=== PATIENT | female | born 1975 | race Caucasian/White ===

== ENCOUNTER 2020-09-11 13:34 | Emergency (ER) | payer OTHER ==
[2020-09-11 13:43] VITALS: TEMP 97
[2020-09-11] MEDS ORDERED: SODIUM CHLORIDE 0.9% 500 ML 500 ML IV STA (14:09)
--- NOTE | 2020-09-11 14:14 | ED ---
General Adult HPI - General Chief complaint: Neuro Symptoms/Deficit Stated complaint: facial/rt arm numbness Time Seen by Provider: 09/11/20 14:00 Source: patient, family, RN notes reviewed, old records reviewed Mode of arrival: wheelchair Limitations: no limitations - History of Present Illness Initial comments: This is a 45-year-old female presents emergency Department with 1 hour worth of symptoms. Patient states she started having tingling to her right hand and tingling around her mouth (reason she came to the emergency department. Patient states she had no weakness she denies any slurred speech. Patient denies any blurred vision patient denies any headache. Patient denies chest pain palpitations difficulty breathing shortness of breath. Patient denies abdominal pain patient denies nausea vomiting diarrhea. Patient denies any recent fever chills or cough. Patient denies any seizure-like activity. Patient states she does have a history of seizures and is on Trileptal and Neurontin. Patient denies any recent illness or sickness. - Related Data Allergies Allergy/AdvReac Type Severity Reaction Status Date / Time lacosamide [From Vimpat] Allergy Rash/Hives Verified 09/11/20 15:45 Penicillins Allergy Anaphylaxis Verified 09/11/20 15:45 Sulfa (Sulfonamide Allergy Rash/Hives Verified 09/11/20 15:45 Antibiotics) omeprazole AdvReac Rash/Hives Verified 09/11/20 15:45 Review of Systems ROS Statement: Those systems with pertinent positive or pertinent negative responses have been documented in the HPI. ROS Other: All systems not noted in ROS Statement are negative. Past Medical History Past Medical History: Hyperlipidemia, Seizure Disorder, Thyroid Disorder History of Any Multi-Drug Resistant Organisms: None Reported Past Surgical History: Section, Hysterectomy, Tubal Ligation Past Psychological History: Bipolar Smoking Status: Never smoker Past Alcohol Use History: None Reported Past Drug Use History: None Reported General Exam - General Exam Comments Initial Comments: GENERAL: Patient is well-developed and well-nourished. Patient is nontoxic and well- hydrated and is in no acute distress. ENT: Neck is soft and supple. No significant lymphadenopathy is noted. Oropharynx is clear. Moist mucous membranes. Neck has full range of motion without eliciting any pain. EYES: The sclera were anicteric and conjunctiva were pink and moist. Extraocular movements were intact and pupils were equal round and reactive to light. Eyelids were unremarkable. PULMONARY: Unlabored respirations. Good breath sounds bilaterally. No audible rales rhonchi or wheezing was noted. CARDIOVASCULAR: There is a regular rate and rhythm without any murmurs gallops or rubs. ABDOMEN: Soft and nontender with normal bowel sounds. SKIN: Skin is clear with no lesions or rashes and otherwise unremarkable. NEUROLOGIC: Patient is alert and oriented x3. Cranial nerves II through XII are grossly intact. Motor and sensory are also intact. She does state her fingers and her skin around her mouth are tingly but she has normal sensation. Normal speech, volume and content. Symmetrical smile. Cerebellar testing finger to nose bilaterally is normal. I found no objective signs of stroke MUSCULOSKELETAL: Normal extremities with adequate strength and full range of motion. LYMPHATICS: No significant lymphadenopathy is noted PSYCHIATRIC: Normal psychiatric evaluation. Limitations: no limitations Course Vital Signs 09/11/20 13:41 Temperature 97 F L Pulse Rate 110 H Respiratory 16 Rate Blood Pressure 142/100 O2 Sat by Pulse 97 Oximetry Medical Decision Making - Medical Decision Making EKG shows normal sinus rhythm at 90 bpm LA interval 250 QRS 74 QT interval 350 QTC is 446 per patient's EKG shows no ST segment elevation or depression. Computed tomography scan showed no acute abnormality. I went into the room because of the patient's numbness earlier I recommended admission to see a neurologist in house. Patient refused I had her talk it over the and they came back into the room and she still wanted to go home so she will sign out AMA knowing that these symptoms could worsen. Currently patient has no symptoms at all. - Lab Data Result diagrams: 09/11/20 14:15 09/11/20 14:15 Lab Results 09/11/20 09/11/20 09/11/20 Range/Units 14:15 14:15 14:15 WBC 7.7 (3.8-10.6) k/uL RBC 4.76 (3.80-5.40) m/uL Hgb 13.9 (11.4-16.0) gm/dL Hct 38.7 (34.0-46.0) % MCV 81.2 (80.0-100.0) fL MCH 29.3 (25.0-35.0) pg MCHC 36.0 (31.0-37.0) g/dL RDW 14.0 (11.5-15.5) % Plt Count 262 (150-450) k/uL MPV 7.3 Neutrophils % 60 % Lymphocytes % 29 % Monocytes % 7 % Eosinophils % 2 % Basophils % 0 % Neutrophils # 4.6 (1.3-7.7) k/uL Lymphocytes # 2.3 (1.0-4.8) k/uL Monocytes # 0.5 (0-1.0) k/uL Eosinophils # 0.1 (0-0.7) k/uL Basophils # 0.0 (0-0.2) k/uL PT 10.0 (9.0-12.0) sec INR 0.9 (<1.2) APTT 24.4 (22.0-30.0) sec Sodium 138 (137-145) mmol/L Potassium 3.9 (3.5-5.1) mmol/L Chloride 100 (98-107) mmol/L Carbon Dioxide 25 (22-30) mmol/L Anion Gap 13 mmol/L BUN 13 (7-17) mg/dL Creatinine 0.77 (0.52-1.04) mg/dL Est GFR (CKD-EPI)AfAm >90 (>60 ml/min/1.73 sqM) Est GFR (CKD-EPI)NonAf >90 (>60 ml/min/1.73 sqM) Glucose 99 (74-99) mg/dL Calcium 10.1 (8.4-10.2) mg/dL Total Bilirubin 0.2 (0.2-1.3) mg/dL AST 29 (14-36) U/L ALT 26 (4-34) U/L Alkaline Phosphatase 145 H (38-126) U/L Troponin I (0.000-0.034) ng/mL Total Protein 7.8 (6.3-8.2) g/dL Albumin 5.1 H (3.5-5.0) g/dL 09/11/20 Range/Units 14:15 WBC (3.8-10.6) k/uL RBC (3.80-5.40) m/uL Hgb (11.4-16.0) gm/dL Hct (34.0-46.0) % MCV (80.0-100.0) fL MCH (25.0-35.0) pg MCHC (31.0-37.0) g/dL RDW (11.5-15.5) % Plt Count (150-450) k/uL MPV Neutrophils % % Lymphocytes % % Monocytes % % Eosinophils % % Basophils % % Neutrophils # (1.3-7.7) k/uL Lymphocytes # (1.0-4.8) k/uL Monocytes # (0-1.0) k/uL Eosinophils # (0-0.7) k/uL Basophils # (0-0.2) k/uL PT (9.0-12.0) sec INR (<1.2) APTT (22.0-30.0) sec Sodium (137-145) mmol/L Potassium (3.5-5.1) mmol/L Chloride (98-107) mmol/L Carbon Dioxide (22-30) mmol/L Anion Gap mmol/L BUN (7-17) mg/dL Creatinine (0.52-1.04) mg/dL Est GFR (CKD-EPI)AfAm (>60 ml/min/1.73 sqM) Est GFR (CKD-EPI)NonAf (>60 ml/min/1.73 sqM) Glucose (74-99) mg/dL Calcium (8.4-10.2) mg/dL Total Bilirubin (0.2-1.3) mg/dL AST (14-36) U/L ALT (4-34) U/L Alkaline Phosphatase (38-126) U/L Troponin I <0.012 (0.000-0.034) ng/mL Total Protein (6.3-8.2) g/dL Albumin (3.5-5.0) g/dL Disposition Clinical Impression: Transient cerebral ischemia Disposition: Left Against Medical Advice Condition: Good Instructions (If sedation given, give patient instructions): Transient Ischemic Attack (ED) Referrals: Ryanne Huerta MD [Primary Care Provider] - 1-2 days Time of Disposition: 15:58
[2020-09-11 14:26] LABS: Basophils % (A) 0 %; Eosinophils # (A) 0.1 k/uL (0-0.7); Eosinophils % (A) 2 %; HCT 38.7 % (34.0-46.0); HGB 13.9 gm/dL (11.4-16.0); Lymphocytes # (A) 2.3 k/uL (1.0-4.8); Lymphocytes % (A) 29 %; MCH 29.3 pg (25.0-35.0); MCV 81.2 fL (80.0-100.0); Mean Platelet Volume 7.3; Monocytes # (A) 0.5 k/uL (0-1.0); Monocytes % (A) 7 %; Neutrophils # (A) 4.6 k/uL (1.3-7.7); Neutrophils % (A) 60 %; Platelet Count 262 k/uL (150-450); RBC 4.76 m/uL (3.80-5.40); WBC 7.7 k/uL (3.8-10.6)
[2020-09-11 14:36] LABS: INR 0.9 (<1.2); Partial Thromboplastin Time 24.4 sec (22.0-30.0)
[2020-09-11 14:38] LABS: ALT 26 U/L (4-34); AST 29 U/L (14-36); African American GFR (CKD) >90 (>60 ml/min/1.73 sqM); Albumin 5.1 g/dL (3.5-5.0); Alkaline Phosphatase 145 U/L (38-126); Anion Gap 13 mmol/L; Blood Urea Nitrogen 13 mg/dL (7-17); Calcium 10.1 mg/dL (8.4-10.2); Carbon Dioxide 25 mmol/L (22-30); Chloride 100 mmol/L (98-107); Glucose 99 mg/dL (74-99); Non-African American GFR(CKD) >90 (>60 ml/min/1.73 sqM); Potassium 3.9 mmol/L (3.5-5.1); Sodium 138 mmol/L (137-145); Total Bilirubin 0.2 mg/dL (0.2-1.3); Total Protein 7.8 g/dL (6.3-8.2)
--- NOTE | 2020-09-11 14:58 | CT ---
EXAMINATION TYPE: CT brain wo con for TPA DATE OF EXAM: 09/11/2020 COMPARISON: HISTORY: Neuro deficit, acute stroke suspected. Right sided facial numbness and tingling CT DLP: 1099.4 mGycm Automated exposure control for dose reduction was used. FINDINGS: There is no acute intracranial hemorrhage, mass effect, or midline shift identified. The ventricles and sulci are within normal limits in size. The globes are intact and the visualized sinuses are mendel ar. IMPRESSION: No acute intracranial hemorrhage, mass effect, or midline shift is seen.
--- NOTE | 2020-09-11 15:12 | XR ---
EXAMINATION TYPE: XR chest 2V DATE OF EXAM: 09/11/2020 COMPARISON: NONE HISTORY: Altered mental status TECHNIQUE: Frontal and lateral views of the chest are obtained. FINDINGS: There is no focal air space opacity, pleural effusion, or pneumothorax seen. The cardiac silhouette size is within normal limits. The osseous structures are intact, there is a spinal curva ture. There are overlying leads. IMPRESSION: No acute cardiopulmonary process.
[2020-09-11 16:28] VITALS: BP 123/80; PULSE 92; RESP 18
== END 2020-09-11 16:27 | disposition left against medical advice (07) ==
LOC: EC 13:34
DX: G45.9 Transient cerebral ischemic attack, unspecified (principal); E78.5 Hyperlipidemia, unspecified; E07.9 Disorder of thyroid, unspecified; Z98.51 Tubal ligation status; Z90.710 Acquired absence of both cervix and uterus
CPT/HCPCS: 36415; 70450; 71046; 80053; 84484; 85025; 85610; 85730; 93005; 99284

== ENCOUNTER 2020-09-12 12:00 | Emergency (ER) | payer OTHER ==
[2020-09-12 12:10] VITALS: TEMP 97.9
[2020-09-12 12:40] LABS: Basophils % (A) 0 %; Eosinophils # (A) 0.1 k/uL (0-0.7); Eosinophils % (A) 2 %; HCT 40.8 % (34.0-46.0); HGB 14.4 gm/dL (11.4-16.0); Lymphocytes # (A) 1.3 k/uL (1.0-4.8); Lymphocytes % (A) 30 %; MCH 29.2 pg (25.0-35.0); MCHC 35.4 g/dL (31.0-37.0); MCV 82.5 fL (80.0-100.0); Mean Platelet Volume 7.3; Monocytes # (A) 0.2 k/uL (0-1.0); Monocytes % (A) 5 %; Neutrophils # (A) 2.7 k/uL (1.3-7.7); Neutrophils % (A) 62 %; Platelet Count 249 k/uL (150-450); RBC 4.94 m/uL (3.80-5.40); RDW 14.2 % (11.5-15.5); WBC 4.4 k/uL (3.8-10.6)
[2020-09-12 12:48] LABS: INR 0.9 (<1.2); Partial Thromboplastin Time 22.8 sec (22.0-30.0); Prothrombin Time 9.8 sec (9.0-12.0)
[2020-09-12 12:50] LABS: ALT 24 U/L (4-34); AST 31 U/L (14-36); African American GFR (CKD) >90 (>60 ml/min/1.73 sqM); Albumin 4.9 g/dL (3.5-5.0); Alkaline Phosphatase 134 U/L (38-126); Anion Gap 13 mmol/L; Blood Urea Nitrogen 13 mg/dL (7-17); Calcium 10.2 mg/dL (8.4-10.2); Carbon Dioxide 23 mmol/L (22-30); Chloride 106 mmol/L (98-107); Glucose 144 mg/dL (74-99); Magnesium 1.7 mg/dL (1.6-2.3); Non-African American GFR(CKD) >90 (>60 ml/min/1.73 sqM); Potassium 4.2 mmol/L (3.5-5.1); Sodium 142 mmol/L (137-145); Total Bilirubin 0.2 mg/dL (0.2-1.3); Total Protein 7.8 g/dL (6.3-8.2)
--- NOTE | 2020-09-12 13:21 | ED ---
General Adult HPI - General Chief complaint: Neuro Symptoms/Deficit Stated complaint: revisit - chest pain, lt arm numbness Time Seen by Provider: 09/12/20 12:20 Source: patient, RN notes reviewed Mode of arrival: ambulatory Limitations: no limitations - History of Present Illness Initial comments: 45-year-old female presents emergency from chief complaint of tingling of her left arm. Patient states she's been having intermittent chest palpitations. Patient states that she seen yesterday was given be admitted for TIA. Patient left AGAINST MEDICAL ADVICE. She states she had right-sided symptoms history is left-sided symptoms today. Denies any current headache no blurred vision no slurred speech and difficulty and bleeding. Patient does have underlying seizure disorder. Patient denies any nausea vomiting fevers chills neck. Neck discomfort. - Related Data Home Medications Medication Instructions Recorded Confirmed Cholecalciferol [Vitamin D3 (25 25 mcg PO DAILY 09/11/20 09/12/20 Mcg = 1000 Iu)] Collagenic Burn (Obvi Brand) 2 cap PO DAILY 09/11/20 09/12/20 Fenofibrate Nanocrystallized 48 mg PO DAILY 09/11/20 09/12/20 [Fenofibrate] Gabapentin [Neurontin] 1,200 mg PO DAILY 09/11/20 09/12/20 Gabapentin [Neurontin] 1,600 mg PO HS 09/11/20 09/12/20 Levothyroxine Sodium [Euthyrox] 25 mcg PO DAILY 09/11/20 09/12/20 Multivitamins, Thera [Multivitamin 1 tab PO DAILY 09/11/20 09/12/20 (formulary)] OXcarbazepine [Trileptal] 300 mg PO BID 09/11/20 09/12/20 [place]-3 Fatty Acids/Fish Oil [Fish 1 cap PO DAILY 09/11/20 09/12/20 Oil 1,000 mg Softgel] Plant Stanol Caro [Cholest Off] 450 mg PO BID 09/11/20 09/12/20 QUEtiapine [SEROquel] 200 mg PO BID 09/11/20 09/12/20 Simvastatin [Zocor] 80 mg PO HS 09/11/20 09/12/20 Allergies Allergy/AdvReac Type Severity Reaction Status Date / Time lacosamide [From Vimpat] Allergy Rash/Hives Verified 09/12/20 13:22 omeprazole Allergy Rash/Hives Verified 09/12/20 13:22 Penicillins Allergy Anaphylaxis Verified 09/12/20 13:22 Sulfa (Sulfonamide Allergy Rash/Hives Verified 09/12/20 13:22 Antibiotics) Review of Systems ROS Statement: Those systems with pertinent positive or pertinent negative responses have been documented in the HPI. ROS Other: All systems not noted in ROS Statement are negative. Past Medical History Past Medical History: Hyperlipidemia, Seizure Disorder, Thyroid Disorder History of Any Multi-Drug Resistant Organisms: None Reported Past Surgical History: Section, Hysterectomy, Tubal Ligation Past Psychological History: Bipolar Smoking Status: Never smoker Past Alcohol Use History: None Reported Past Drug Use History: None Reported General Exam Limitations: no limitations General appearance: alert, in no apparent distress Head exam: Present: atraumatic, normocephalic, normal inspection Eye exam: Present: normal appearance, PERRL, EOMI. Absent: scleral icterus, c onjunctival injection, periorbital swelling ENT exam: Present: normal exam, mucous membranes moist Neck exam: Present: normal inspection, full ROM. Absent: tenderness, meningismus, lymphadenopathy Respiratory exam: Present: normal lung sounds bilaterally. Absent: respiratory distress, wheezes, rales, rhonchi, stridor Cardiovascular Exam: Present: normal rhythm, tachycardia, normal heart sounds. Absent: systolic murmur, diastolic murmur, rubs, gallop, clicks Neurological exam: Present: alert, oriented X3, CN II-XII intact, reflexes normal. Absent: motor sensory deficit Expanded Patient oriented to: Present: person, place, time Speech: Present: fluid speech Cranial nerves: EOM's Intact: Normal, Gag Reflex: Normal, Tongue Deviation: Normal, Facial Sensation: Normal Sensory exam: Upper Extremity Light Touch: Normal, Lower Extremity Light Touch: Normal Motor strength exam: RUE: 5, LUE: 5, RLE: 5, LLE: 5 Eye Response: (4) open spontaneously Motor Response: (6) obeys commands Verbal Response: (5) oriented Skin exam: Present: warm, dry, intact, normal color. Absent: rash Course Vital Signs 09/12/20 12:06 Temperature 97.9 F Pulse Rate 110 H Respiratory 19 Rate Blood Pressure 137/96 O2 Sat by Pulse 98 Oximetry Medical Decision Making - Medical Decision Making Patient reevaluated updated and results she states symptoms have resolved. Patient offered admission yesterday and again today for neurology. She states she has neurologist has not become an appointment and has an appointment with PCP. Patient's had unbearable paresthesias including left and right sided and nothing persistent with no associated other symptoms. Again she was offered admission declines admission states that she does not want stay in the hospital. - Lab Data Result diagrams: 09/12/20 12:30 09/12/20 12:30 Lab Results 09/12/20 09/12/20 09/12/20 Range/Units 12:30 12:30 12:30 WBC 4.4 (3.8-10.6) k/uL RBC 4.94 (3.80-5.40) m/uL Hgb 14.4 (11.4-16.0) gm/dL Hct 40.8 (34.0-46.0) % MCV 82.5 (80.0-100.0) fL MCH 29.2 (25.0-35.0) pg MCHC 35.4 (31.0-37.0) g/dL RDW 14.2 (11.5-15.5) % Plt Count 249 (150-450) k/uL MPV 7.3 PT 9.8 (9.0-12.0) sec INR 0.9 (<1.2) APTT 22.8 (22.0-30.0) sec Sodium 142 (137-145) mmol/L Potassium 4.2 (3.5-5.1) mmol/L Chloride 106 (98-107) mmol/L Carbon Dioxide 23 (22-30) mmol/L Anion Gap 13 mmol/L BUN 13 (7-17) mg/dL Creatinine 0.73 (0.52-1.04) mg/dL Est GFR (CKD-EPI)AfAm >90 (>60 ml/min/1.73 sqM) Est GFR (CKD-EPI)NonAf >90 (>60 ml/min/1.73 sqM) Glucose 144 H (74-99) mg/dL Calcium 10.2 (8.4-10.2) mg/dL Magnesium 1.7 (1.6-2.3) mg/dL Total Bilirubin 0.2 (0.2-1.3) mg/dL AST 31 (14-36) U/L ALT 24 (4-34) U/L Alkaline Phosphatase 134 H (38-126) U/L Troponin I (0.000-0.034) ng/mL Total Protein 7.8 (6.3-8.2) g/dL Albumin 4.9 (3.5-5.0) g/dL 09/12/20 Range/Units 12:30 WBC (3.8-10.6) k/uL RBC (3.80-5.40) m/uL Hgb (11.4-16.0) gm/dL Hct (34.0-46.0) % MCV (80.0-100.0) fL MCH (25.0-35.0) pg MCHC (31.0-37.0) g/dL RDW (11.5-15.5) % Plt Count (150-450) k/uL MPV PT (9.0-12.0) sec INR (<1.2) APTT (22.0-30.0) sec Sodium (137-145) mmol/L Potassium (3.5-5.1) mmol/L Chloride (98-107) mmol/L Carbon Dioxide (22-30) mmol/L Anion Gap mmol/L BUN (7-17) mg/dL Creatinine (0.52-1.04) mg/dL Est GFR (CKD-EPI)AfAm (>60 ml/min/1.73 sqM) Est GFR (CKD-EPI)NonAf (>60 ml/min/1.73 sqM) Glucose (74-99) mg/dL Calcium (8.4-10.2) mg/dL Magnesium (1.6-2.3) mg/dL Total Bilirubin (0.2-1.3) mg/dL AST (14-36) U/L ALT (4-34) U/L Alkaline Phosphatase (38-126) U/L Troponin I <0.012 (0.000-0.034) ng/mL Total Protein (6.3-8.2) g/dL Albumin (3.5-5.0) g/dL Disposition Clinical Impression: Paresthesias Disposition: HOME SELF-CARE Condition: Stable Instructions (If sedation given, give patient instructions): Paresthesia (ED) Additional Instructions: Please return to the Emergency Department if symptoms worsen or any other concerns. Is patient prescribed a controlled substance at d/c from ED?: No Referrals: Ryanne Huerta MD [Primary Care Provider] - 1-2 days Time of Disposition: 14:25
[2020-09-12 14:36] VITALS: BP 116/77; PULSE 87; RESP 18
[2020-09-12 14:43] LABS: Anisocytosis (M) Present; Poikilocytosis (M) Present
== END 2020-09-12 14:40 | disposition home or self-care (01) ==
LOC: EC 12:00
DX: R20.2 Paresthesia of skin (principal); E78.5 Hyperlipidemia, unspecified; E07.9 Disorder of thyroid, unspecified; Z90.710 Acquired absence of both cervix and uterus; Z98.51 Tubal ligation status
CPT/HCPCS: 36415; 80053; 83735; 84484; 85025; 85610; 85730; 93005; 99285

== ENCOUNTER → 2020-12-04 | Outpatient (CLI) | payer OTHER ==
--- NOTE | 2020-12-05 08:18 | US ---
EXAMINATION TYPE: US carotid duplex BILAT DATE OF EXAM: 12/04/2020 COMPARISON: CT brain. CLINICAL HISTORY: Z86.73 Transient Ischemic Attack. TIA. Previous smoker, hyperlipidemia. EXAM MEASUREMENTS: RIGHT: Peak Systolic Velocity (PSV) cm/sec ----- Right CCA: 66.4 ----- Right ICA: 98.8 ----- Right ECA: 87.2 ICA/CCA ratio: 1.5 RIGHT: End Diastole cm/sec ----- Right CCA: 27.3 ----- Right ICA: 49.6 ----- Right ECA: 26.3 LEFT: Peak Systolic Velocity (PSV) cm/sec ----- Left CCA: 69.9 ----- Left ICA: 69.0 ----- Left ECA: 70.8 ICA/CCA ratio: 1.0 LEFT: End Diastole cm/sec ----- Left CCA: 30.7 ----- Left ICA: 33.6 ----- Left ECA: 19.1 VERTEBRALS (direction of flow): Right Vertebral: Antegrade Left Vertebral: Antegrade Rhythm: Normal Intimal thickening seen bilaterally. No elevated velocities at this time. Hypoechoic area with hyperechoic center seen within the right neck: 2.1 x 1.6 x 0.8 cm. IMPRESSION: 1. No significant flow-limiting stenosis. 2. Lymph node in the right neck. Criteria for Assigning % of Stenosis / Diameter reduction (Estimation based on the indirect measurements of the internal carotid artery velocities (ICA PSV). 1. Normal (no stenosis)=ICA PSV < 125 cm/s: ratio < 2.0: ICA EDV<40 cm/s. 2. Less than 50% stenosis=ICA PSV < 125 cm/s: ratio < 2.0: ICA EDV<40 cm/s. 3. 50 to 69% stenosis=ICA PSV of 125 to 230 cm/s: ration 2.0 ? 4.0: ICA EDV 40-100 cm/s. 4. Greater than 70% stenosis to near occlusion= ICA PSV > 230 cm/s: ratio > 4.0: ICA EDV > 100 cm/s. 5. Near occlusion= ICA PSV velocities may be low or undetectable: variable ratio and ICA EDV. 6. Total occlusion=unable to detect flow.
== END | disposition home or self-care (01) ==
LOC: RADUSWWP 15:38
PROVIDERS: ATTEND Psychiatry & Neurology Neurology
DX: E78.5 Hyperlipidemia, unspecified (principal); Z87.891 Personal history of nicotine dependence; Z86.73 Personal history of transient ischemic attack (TIA), and cerebral infarction without residual deficits
CPT/HCPCS: 93880

== ENCOUNTER → 2021-01-29 | Outpatient (CLI) | payer OTHER ==
--- NOTE | 2021-01-29 16:45 | US ---
EXAMINATION TYPE: US liver DATE OF EXAM: 01/29/2021 COMPARISON: NONE CLINICAL HISTORY: R94.5 Abnormal liver function test. Abnormal labs. EXAM MEASUREMENTS: Liver Length: 16.1 cm Gallbladder Wall: 0.2 cm CBD: 0.2 cm Right Kidney: 10.4 x 4.3 x 3.7 cm Pancreas: Echogenic in appearance Liver: Increased attenuation, decreased visualization of vessels suggestive of fatty infiltrate. Ec hogenic. Heterogenous. Coarse. Gallbladder: wnl, fold seen Evidence for sonographic Paige's sign: neg CBD: wnl Right Kidney: No hydronephrosis or masses seen IMPRESSION: 1. No suspicious acute abnormality. 2. There may be some mild fatty infiltration hepatomegaly present.
== END | disposition home or self-care (01) ==
LOC: RADUSWWP 08:24
PROVIDERS: ATTEND Family Medicine
DX: K76.89 Other specified diseases of liver (principal)
CPT/HCPCS: 76705

== ENCOUNTER → 2021-03-26 | Outpatient (CLI) | payer OTHER ==
--- NOTE | 2021-03-26 23:21 | US ---
EXAMINATION TYPE: US thyroid st tissue head/neck DATE OF EXAM: 03/26/2021 COMPARISON: NONE CLINICAL HISTORY: 45-year-old female E03.9 HYPOTHYROIDISM. On thyroid medicine. TECHNIQUE: Multiple sonographic images of the thyroid gland are obtained. FINDINGS: GLAND SIZE: Right Lobe: 4.2 x 1.4 x 1.2 cm Overall Parenchyma: Mildly heterogeneous Left Lobe: 4.2 x 1.5 x 1.1 cm Overall Parenchyma: homogeneous Isthmus Thickness: 0.2 cm NODULES RIGHT: # of nodules measured on right: 1 1. 1.0 x 0.7 x 0.5 cm, mid lateral, solid or almost completely solid, heterogeneously hypoechoic nod ule, which is wider than tall, with smooth margins, without echogenic foci. Prior size: No prior LEFT: # of nodules measured on left: 0 ISTHMUS: # of nodules measured in the isthmus: 0 Bilateral neck scanned, no evidence of lymphadenopathy. IMPRESSION: Solitary 1 cm TR4 solid nodule within the right midpole. This can be followed and biopsy can be consi dered if it reaches 1.5 cm.
== END | disposition home or self-care (01) ==
LOC: RADUSWWP 13:28
PROVIDERS: ATTEND Otolaryngology
DX: E03.9 Hypothyroidism, unspecified (principal); R91.1 Solitary pulmonary nodule
CPT/HCPCS: 76536

== ENCOUNTER → 2021-04-23 | Outpatient (CLI) | payer OTHER ==
--- NOTE | 2021-04-25 12:34 | MM ---
Reason for exam: screening (asymptomatic). Last mammogram was performed 3 years and 7 months ago. History: Patient is postmenopausal and has history of other cancer at age 43. Physical Findings: A clinical breast exam by your physician is recommended on an annual basis and results should be correlated with mammographic findings. MG Screening Mammo w CAD Bilateral CC and MLO view(s) were taken. Prior study comparison: September 22, 2017, mammogram, performed at [facility]. The breast tissue is heterogeneously dense. This may lower the sensitivity of mammography. There is no discrete abnormality. No significant changes when compared with prior studies. ASSESSMENT: Benign, BI-RAD 2 RECOMMENDATION: Routine screening mammogram of both breasts in 1 year.
== END | disposition home or self-care (01) ==
LOC: RADMAMWWP 08:03
PROVIDERS: ATTEND Family Medicine
DX: Z12.31 Encounter for screening mammogram for malignant neoplasm of breast (principal); Z78.0 Asymptomatic menopausal state
CPT/HCPCS: 77067

== ENCOUNTER 2021-05-17 12:15 | Emergency (ER) | payer OTHER ==
[2021-05-17 12:20] VITALS: PULSE 79; RESP 18; TEMP 97.8
[2021-05-17 12:21] VITALS: BP 111/77
--- NOTE | 2021-05-17 13:47 | ED ---
General Adult HPI - General Chief complaint: Seizure Stated complaint: Fall/Seizure Time Seen by Provider: 05/17/21 13:42 Source: patient, family (), RN notes reviewed, old records reviewed Mode of arrival: wheelchair Limitations: no limitations - History of Present Illness Initial comments: 44-year-old female, alert and oriented 4, presents with her elizabeth with complaints of having a fall and then a seizure today. Patient states the last thing she remembers was bending over to sampler pickup her slippers and waking up on the floor. She thinks she hit her head on the shoe rack. She has had an abrasion to her right elbow and her right little finger. She states that she has had ongoing balance issues since January and walks with a cane. She sees Dr. Rodriguez and did call their office who told her to come to the emergency room for evaluation. Patient states that she has a right sided headache 9 out of 10. No nausea, vomiting, diarrhea or fevers. She does take gabapentin, xcorpri, venlafaxine, and quetiapine daily. -: hour(s) (3) Location: head (right parietal) Radiation: non-radiation Severity scale (1-10): 9 Quality: aching Consistency: constant Improves with: none Worsens with: other (palpation) Associated Symptoms: headaches, seizure, other (stuttering, off balance) - Related Data Home Medications Medication Instructions Recorded Confirmed Cholecalciferol [Vitamin D3 (25 25 mcg PO DAILY 09/11/20 09/12/20 Mcg = 1000 Iu)] Collagenic Burn (Obvi Brand) 2 cap PO DAILY 09/11/20 09/12/20 Fenofibrate Nanocrystallized 48 mg PO DAILY 09/11/20 09/12/20 [Fenofibrate] Gabapentin [Neurontin] 1,200 mg PO DAILY 09/11/20 09/12/20 Gabapentin [Neurontin] 1,600 mg PO HS 09/11/20 09/12/20 Levothyroxine Sodium [Euthyrox] 25 mcg PO DAILY 09/11/20 09/12/20 Multivitamins, Thera [Multivitamin 1 tab PO DAILY 09/11/20 09/12/20 (formulary)] OXcarbazepine [Trileptal] 300 mg PO BID 09/11/20 09/12/20 [place]-3 Fatty Acids/Fish Oil [Fish 1 cap PO DAILY 09/11/20 09/12/20 Oil 1,000 mg Softgel] Plant Stanol Caro [Cholest Off] 450 mg PO BID 09/11/20 09/12/20 QUEtiapine [SEROquel] 200 mg PO BID 09/11/20 09/12/20 Simvastatin [Zocor] 80 mg PO HS 09/11/20 09/12/20 Allergies Allergy/AdvReac Type Severity Reaction Status Date / Time lacosamide [From Vimpat] Allergy Rash/Hives Verified 09/12/20 13:22 omeprazole Allergy Rash/Hives Verified 09/12/20 13:22 Penicillins Allergy Anaphylaxis Verified 09/12/20 13:22 Sulfa (Sulfonamide Allergy Rash/Hives Verified 09/12/20 13:22 Antibiotics) Review of Systems ROS Statement: Those systems with pertinent positive or pertinent negative responses have been documented in the HPI. ROS Other: All systems not noted in ROS Statement are negative. Past Medical History Past Medical History: Hyperlipidemia, Seizure Disorder, Thyroid Disorder History of Any Multi-Drug Resistant Organisms: None Reported Past Surgical History: Section, Hysterectomy, Tubal Ligation Past Psychological History: Bipolar Smoking Status: Never smoker Past Alcohol Use History: None Reported Past Drug Use History: None Reported General Exam Limitations: no limitations General appearance: alert, in no apparent distress Head exam: Present: atraumatic, normocephalic, normal inspection Eye exam: Present: normal appearance, EOMI. Absent: scleral icterus, conjunctival injection, nystagmus, periorbital swelling, periorbital tenderness ENT exam: Present: normal exam, normal oropharynx, mucous membranes moist, other (Tongue piercing) Neck exam: Present: normal inspection, full ROM, thyromegaly. Absent: tenderness, meningismus, lymphadenopathy Respiratory exam: Present: normal lung sounds bilaterally. Absent: respiratory distress, accessory muscle use, decreased breath sounds Cardiovascular Exam: Present: regular rate, normal rhythm, normal heart sounds GI/Abdominal exam: Present: soft. Absent: distended, tenderness, guarding, rebound, rigid Extremities exam: Present: normal inspection, normal capillary refill. Absent: tenderness, pedal edema Back exam: Present: normal inspection, full ROM. Absent: tenderness, CVA tenderness (R), CVA tenderness (L), rash noted Neurological exam: Present: alert, oriented X3, CN II-XII intact Expanded Patient oriented to: Present: person, place, time Speech: Present: fluid speech Cranial nerves: EOM's Intact: Normal, Gag Reflex: Normal, Tongue Deviation: Normal Motor strength exam: RUE: 5, LUE: 5, RLE: 5, LLE: 5 Eye Response: (4) open spontaneously Motor Response: (6) obeys commands Verbal Response: (5) oriented [place] Total: 15 Psychiatric exam: Present: normal affect, normal mood Skin exam: Present: warm, dry, normal color, abrasion (Right elbow, right little finger). Absent: cyanosis, diaphoretic, erythema Course Vital Signs 05/17/21 05/17/21 12:17 12:20 Temperature 97.8 F 97.8 F Pulse Rate 79 79 Respiratory 18 18 Rate Blood Pressure 111/77 O2 Sat by Pulse 98 98 Oximetry - Reevaluation(s) Reevaluation #1: 05/17/21 14:28 Called CAT scan is patient was having a seizure. Staff states that patient had her arms up overhead were shaking them violently. They state it lasted less than 20 seconds. There was no postictal period patient is awake and alert moving all extremities. Speaking clearly and answering medication dosing questions Time: 14:20 Medical Decision Making - Medical Decision Making Patient presents with a fall in seizure today. She is complaining of a right- sided parietal headache where she states she hit her head on a shoe rack. CT c-spine shows no acute fracture, no evidence of intracranial hemorrhage or midline shift. Patient has no focal neurological deficits at this time. She is complaining of altered gait since January with occasional stuttering. During CT the patient did have seizure-type activity or staff witnessed patient comes above her head awaiting violently lasting less than 20 seconds. There was no postictal state. Patient is alert and oriented answering questions appropriately. Dr. Bosch at bedside to evaluate patient. Vital signs are stable. She'll be discharged home to follow up with her primary care doctor, continue her medications as prescribed. I did direct the patient to stay with someone at all times to prevent injury. at bedside agreeable to this plan. She was reminded not to drive. Patient directed to return to the emergency room with any new or concerning symptoms. Disposition Clinical Impression: Seizure disorder Disposition: HOME SELF-CARE Condition: Good Instructions (If sedation given, give patient instructions): Recurrent Seizures in Adults (ED) Additional Instructions: Continue previously prescribed medications. Contact your primary care doctor on Thursday regarding your breakthrough seizures. Return to the emergency room with any new or concerning symptoms. Take Tylenol and/or Motrin as needed for any history of pains. Increase your fluid intake Is patient prescribed a controlled substance at d/c from ED?: No Referrals: Libby Jimenes MD [Primary Care Provider] - 1-2 days Narinder Rodriguez MD [Medical Doctor] - 1-2 days Time of Disposition: 14:33
--- NOTE | 2021-05-17 14:24 | CT ---
EXAMINATION TYPE: CT brain cspine wo con DATE OF EXAM: 05/17/2021 COMPARISON: CT brain September 11, 2020 HISTORY: Fall/seizures with neck pain. Convulsions. CT DLP: 1415.8 mGycm. Automated Exposure Control for Dose Reduction was Utilized. TECHNIQUE: CT scan of the head and cervical spine are performed without contrast. FINDINGS: There is no acute intracranial hemorrhage, mass effect, or midline shift identified. The ventricles and sulci are within normal limits in size. Linares-white matter differentiation is maintai mary. The globes are intact and the visualized sinuses are clear. The calvarium is intact. Cervical spine is visualized in its entirety from C1 through upper thoracic levels and demonstrates r eversal of normal cervical curvature without evidence of acute fracture or dislocation. Prevertebral soft tissue appears within normal limits. The C1-C2 articulation is within normal limits on the cor onal images. Vertebral body heights and disc space heights are maintained. Spinal canal is preserved . Axial images show no suspicious abnormality. Thyroid gland shows near 1.0 cm right thyroid nodule a xial image 63 which correlates with recent ultrasound March 26, 2021. Lung apices show no pneumotho rax. IMPRESSION: 1. There is no acute fracture or dislocation evident in the cervical spine. 2. No acute intracranial hemorrhage or midline shift is seen.
== END 2021-05-17 14:51 | disposition home or self-care (01) ==
LOC: EC 12:15
DX: R56.9 Unspecified convulsions (principal); E78.5 Hyperlipidemia, unspecified; E07.9 Disorder of thyroid, unspecified; F31.9 Bipolar disorder, unspecified; Z79.899 Other long term (current) drug therapy; Z88.0 Allergy status to penicillin; Z88.2 Allergy status to sulfonamides; Z90.710 Acquired absence of both cervix and uterus; Z98.51 Tubal ligation status
CPT/HCPCS: 70450; 72125; 99285

== ENCOUNTER → 2021-06-11 | Outpatient (CLI) | payer OTHER ==
[2021-06-11 14:47] LABS: ALT 22 U/L (8-44); AST 20 U/L (13-35); African American GFR (CKD) 106.4 (60.0-200.0); Albumin/Globulin Ratio 2.16 (1.60-3.17); Alkaline Phosphatase 124 U/L (41-126); Blood Urea Nitrogen 10.1 mg/dL (9.0-27.0); Carbon Dioxide 25.2 mmol/L (20.0-27.5); Chloride 97 mmol/L (96-109); Globulin 2.3 g/dL (1.6-3.3); Glucose 96 mg/dL (70-110); Non-African American GFR(CKD) 91.8 (60.0-200.0); Sodium 134 mmol/L (135-145); Total Bilirubin <0.15 mg/dL (0.30-1.20); Total Protein 7.3 g/dL (6.2-8.2)
== END | disposition home or self-care (01) ==
LOC: LABWHC1 10:24
PROVIDERS: ATTEND Nurse Practitioner Family
DX: Z51.81 Encounter for therapeutic drug level monitoring (principal)
CPT/HCPCS: 36415; 80053